=== PATIENT | female | born 1980 | race Caucasian/White ===

== ENCOUNTER 2020-05-31 01:47 | Outpatient (CLI) | payer OTHER, SELFPAY ==
[2020-05-31 18:31] LABS: SARS-CoV-2 RNA PCR Negative
== END 2020-05-31 01:48 | disposition home or self-care (01) ==
LOC: ANHCOVIDDT 01:48
PROVIDERS: Visit Provider Obstetrics & Gynecology
DX: Z01.812 Encounter for preprocedural laboratory examination (principal); Z20.828 Contact with and (suspected) exposure to other viral communicable diseases
CPT/HCPCS: 87635; C9803; U0003

== ENCOUNTER 2020-06-04 02:02 | Day surgery (SDC) | payer OTHER, SELFPAY ==
[2020-05-19 16:25] VITALS: BMI 26.6
[2020-06-04 09:56] VITALS: BP 126/77; PULSE 73; RESP 20; TEMP 36.7; O2SAT 100
[2020-06-04] MEDS: ACETAMINOPHEN 500 MG TABLET 1000 MG PO (10:15)
[2020-06-04] MEDS: LACTATED RINGERS 1,000 ML 30 ML IV CONT (10:20)
--- NOTE | 2020-06-04 11:12 | WPDANESEPPF ---
Anes - Initial Pre Proc Eval Procedure: Operation Date: 06/04/20 12:00 Proposed Procedures p Hysteroscopy Dilation and Curettage With Rosibel - Ozzy Valdez MD Date/Time: 06/04/20 11:12 Surgeon: Ozzy Valdez MD Pre Op Diagnosis: Heavy Bleeding,Dysmenorrhea Patient Data Age: 39 Gender: F Height: 5 ft 4 in Weight: 70.31 kg Allergies Allergy/AdvReac Type Severity Reaction Status Date / Time Cantaloupe Allergy Severe TONGUE Uncoded 12/21/18 07:14 SWELLING Patient hx anesthesia problems: none Family hx anesthesia problems: none PMFSH Past Medical History Medical History (Updated 06/04/20 @ 11:16 by Kin Servin MD) Breast cancer Surgical History Surgical History (Updated 06/04/20 @ 11:16 by Kin Servin MD) H/O bilateral mastectomy Family History Family History Mother Family history of gastrointestinal disorder Family history of elevated blood lipids Father Family history of elevated blood lipids Family history of cardiovascular disease Other Family history of malignant neoplasm Social History Social History Smoking status: Never smoker Alcohol intake: current Drinks per week: 2 Substance use type: does not use Living arrangements: with family Gender identity (if verbalized by the patient): Female Sexual Orientation (if Verbalized by the Patient): Straight or Heterosexual Spiritual care concerns: No Anes - Eval Final PreProcedure Day of Procedure 06/04/20 11:12 Patient weight: overweight Heart: regular rate and rhythm Lungs: clear to auscultation Airway: Mallampati scale class 1 Neurological: alert and oriented Last oral intake: >/= 8 hours ASA classification: II Emergent: no Anesthetic plan: proceed Anesthesia type and monitoring: general GIVS and standard monitoring Informed Consent: The patient's anesthetic plan and its attendant risks and benefits were discussed with the patient/family/POA. Questions were solicited and answers provided to the satisfaction of the patient/family/POA.
--- NOTE | 2020-06-04 11:53 | PM.IMHP ---
H&P: HPI History of Present Illness Date/Time: 06/04/20 11:53 Chief complaint: Heavy Bleeding,Dysmenorrhea Narrative: 39 y/o whose has had a vasectomy. She has monthly menses lasting 7 days with heavy flow and lots of cramping. She is interested in surgical management of her problem. Review of Systems Review of Systems: All systems reviewed & are unremarkable except as noted in HPI and below PMFSH Past Medical History Medical History Atypical ductal hyperplasia of breast Atypical lobular hyperplasia (ALH) of breast Surgical History Surgical History H/O bilateral mastectomy Family History Family History Mother Family history of gastrointestinal disorder Family history of elevated blood lipids Father Family history of elevated blood lipids Family history of cardiovascular disease Other Family history of malignant neoplasm Social History Social History Smoking status: Never smoker Alcohol intake: current Drinks per week: 2 Substance use type: does not use Living arrangements: with family Gender identity (if verbalized by the patient): Female Sexual Orientation (if Verbalized by the Patient): Straight or Heterosexual Spiritual care concerns: No Meds Home Medications and Allergies Home Medications Medication Instructions Recorded Confirmed Type No Home Medications 06/04/20 06/04/20 History Allergies Allergy/AdvReac Type Severity Reaction Status Date / Time Cantaloupe Allergy Severe TONGUE Uncoded 06/04/20 11:41 SWELLING Vital Signs Vital Signs - 24 hr 06/04/20 09:56 Temperature 36.7 C Pulse Rate 73 Respiratory Rate 20 Blood Pressure 126/77 Pulse Oximetry 100 Exam Const: Orientation/consciousness: patient oriented x3 Other: Well-developed, well-nourished female in no acute distress. Neck: Thyroid: thyroid normal Lymphatic: no lymphadenopathy noted (in neck, axilla or inguinal nodes) Resp: Effort & Inspection: normal respiratory effort Auscultation: clear to auscultation bilaterally Cardio: Rate: regular rate Rhythm: regular rhythm Heart sounds: S1 normal heart sound present and S2 normal heart sound present GI: Other: ABD: Soft, nontender, nondistended. No guarding or rebound tenderness. No hepatosplenomegaly. : General: Yes no CVA tenderness Other: External genitalia: normal female hair distribution, without lesion. Urethral meatus: no lesion, non prolapsed. Bladder: no mass, nontender Vagina: well-estrogenized, without lesion or discharge. No cystocele or rectocele. Cervix: no lesion or discharge. Uterus: small, anteverted, freely mobile, nontender Adnexa: no mass or tenderness. Anus/perineum: no lesions, nontender Back/Spine/Pelvis: Back: no CVA tenderness Skin: General skin exam: normal color and no rashes or lesions noted Neuro: General: patient oriented x3 Extrem: Other: Extremities: nontender with no edema Psych: Mental Status: mental status grossly normal Affect: normal affect Assessment and Plan Assessment and plan (1) Menorrhagia: Code(s): N92.0 - Excessive and frequent menstruation with regular cycle Status: Acute Assessment and Plan: We reviewed medical as well as surgical management options. She would like a hysteroscopy, D&C and endometrial ablation. She understands this procedure to be inadequate for contraception. She understands risks of surgery to include risks of anesthesia, risks of pain, infection, bleeding, blood products, thromboembolic phenomena and damage to adjacent structures such as bowel, bladder, ureters, blood vessels and nerves. She understands all these risks and elects to proceed with surgery. (2) Dysmenorrhea: Code(s): N94.6 - Dysmenorr
--- NOTE | 2020-06-04 12:15 | SUR.PREOP ---
pt informed of delay w/surgeon
--- NOTE | 2020-06-04 12:16 | WPDHPUPDATE1 ---
History and Physical Update Update Date/Time: 06/04/20 12:16 History and Physical has been reviewed, including an updated exam of the patient. There are NO changes in the patient's condition. Risks, benefits, and alternatives have been discussed and questions answered. Patient agrees to proceed with procedure.
--- NOTE | 2020-06-04 12:53 | P.OP_ITS ---
Procedure Note - Detailed Date of procedure: 06/04/20 Pre-op diagnosis: Heavy Bleeding,Dysmenorrhea Menorrhagia Dysmenorrhea Post-op diagnosis: same Procedure performed: Hysteroscopy Dilation and sharp curettage Endometrial ablation Description of procedure: The patient was taken to the operating room where she was prepared and draped in the usual sterile fashion in the dorsal lithotomy position. The bladder was drained with a red rubber catheter. A sterile speculum was placed into the vagina. The anterior lip of the cervix was grasped with single-tooth tenaculum. Ten mL of 1% lidocaine was administered in a paracervical block. The cervix was then gently dilated using Hegar dilators until an 8 mm dilator could be passed. Hysteroscopy was performed using sterile saline as a distention medium. Findings are as noted above. Sharp curettage was then performed, and endometrial curettings were collected on a Telfa pad and passed off to be sent to pathology. Finally, the the Rosibel device was advance d and endometrial ablation commenced without difficulty. The device was withdrawn and a second look was taken using the hysteroscope. Excellent coverage of the endometrial cavity was noted. The tenaculum was removed. Hemostasis was excellent. Sponge, lap, needle and instrument counts were correct. The patient was awakened and taken to the recovery room in stable condition. I was present and scrubbed through the entire procedure. Implants: None Anesthesia: MAC and local (paracervical block) Surgeon: Ozzy Valdez MD Estimated blood loss (mL): 5 Drains: No Packing: No Pathology: yes (endometrial curettings) Complications: None Condition: stable Disposition: PACU Findings: Uterus sounded to a depth of 7.5 cm with a cervical length of 3 cm, giving a subtracted uterine cavity length of 4.5 cm. The endometrial cavity was unremarkable. Both tubal ostia were seen.
[2020-06-04 12:55] VITALS: BP 117/77; PULSE 74; RESP 14; O2SAT 97
[2020-06-04 13:25] VITALS: BP 112/68; PULSE 63; RESP 18; O2SAT 97
[2020-06-04 13:48] VITALS: BP 135/72; PULSE 60; RESP 16
[2020-06-04] MEDS: oxyCODONE HCL (*CRX) 5 MG TAB IR PO (13:52)
== END 2020-06-04 14:11 | disposition home or self-care (01) ==
PROVIDERS: PCP Nurse Practitioner Family; Visit Provider Obstetrics & Gynecology
PROC: 0U5B8ZZ Destruction of Endometrium, Via Natural or Artificial Opening Endoscopic (ICD-10-PCS; CPT 58563; principal; 2020-06-04 12:00)
DX: N92.0 Excessive and frequent menstruation with regular cycle (principal); N94.6 Dysmenorrhea, unspecified; Z90.13 Acquired absence of bilateral breasts and nipples
CPT/HCPCS: 58563; 87635; 88305; A9270; C9803; J2250; J2704; J3010; J7030; J7120; U0003